=== PATIENT | female | born 1965 | race Caucasian/White ===

== ENCOUNTER → 2020-12-02 | Outpatient (CLI) | payer OTHER ==
[2020-12-02] MEDS: IOHEXOL 300 MG/ML 75 ML VIAL. IV ONE (08:03)
--- NOTE | 2020-12-02 10:15 | RAD ---
EXAM: 1. CT HEAD WITH CONTRAST. 2. CT NECK SOFT TISSUES WITH CONTRAST. HISTORY: Difficulty swallowing, palpable focus right neck, voice changes. TECHNIQUE: Computed tomography of the head and neck soft tissues was performed after the intravenous administration of iodinated contrast. One or more of the following individualized dose reduction tech niques were utilized for this examination: 1. Automated exposure control. 2. Adjustment of the mA and/or kV according to patient size. 3. Use of iterative reconstruction technique. COMPARISON: None. FINDINGS: There are no enhancing parenchymal lesions by CT. The intracranial vasculature is grossly u nremarkable. There is no intracranial hemorrhage. Storm-white differentiation appears preserved. The ventricles are normal in size and position. The paranasal sinuses, temporal bones, orbits and calvarium are unremarkable. A skin marker is placed along the posterior border of the right sternocleidomastoid muscle. No underl kamar mass or other abnormality is seen. There are no pathologically enlarged cervical lymph nodes. Images of the lung apices reveal no acute abnormality. Bone windows reveal no suspicious lesions. The parotid glands and submandibular glands are unremarkable. The thyroid gland reveals no focal lesi ons. There are no clear laryngeal or pharyngeal masses. IMPRESSION: 1. No enhancing brain lesions are identified. MRI is more sensitive if there is persistent concern. N o acute intracranial findings. 2. No abnormalities appreciated set of palpable concern on the right. 3 no clear laryngeal or pharyng eal lesions. Direct visualization is more sensitive if there is persistent concern. Electronically signed by: Lamberto Flores MD (12/02/2020 10:13 AM) [id number]
== END ==
LOC: CT 07:39
PROVIDERS: ATTEND Nurse Practitioner Family
DX: J39.9 Disease of upper respiratory tract, unspecified (principal); R13.10 Dysphagia, unspecified; R49.9 Unspecified voice and resonance disorder
CPT/HCPCS: 70460; 70491; Q9967